=== PATIENT | male | born 1950 | race African-American/Black ===

== ENCOUNTER 2023-03-28 20:27 | Emergency (ER) | payer MEDICARE, OTHER ==
[~2023-03-28] VITALS: Ht 177.8 cm; Wt 100.0 kg
[2023-03-28 20:29] VITALS: BP 132/80
[2023-03-28] MEDS ORDERED: ACETAMINOPHEN 325MG TABLET PO ONE (20:45)
[2023-03-28] MEDS ORDERED: BACLOFEN 10MG TABLET PO ONE (20:45)
[2023-03-28 21:01] LABS: BASOPHILS % 0.3 % (0.0-2.0); EOSINOPHILS % 3.1 % (0.0-5.0); HEMATOCRIT. 43.4 % (42.0-52.0); HEMOGLOBIN. 14.5 g/dL (14.0-18.0); LYMPHOCYTES % 31.5 % (20.0-50.0); MEAN PLATELET VOLUME 8.5 fl (7.4-10.4); MONOCYTES % 7.6 % (2.0-8.0); NEUTROPHILS % 57.5 % (40.0-76.0); PLATELET 188 x1000/uL (130-400); RED BLOOD CELL COUNT 4.83 mill/uL (4.7-6.1); RED CELL DISTRIBUTION WIDTH 13.7 % (11.6-14.6)
[2023-03-28 21:09] LABS: CHLORIDE 103 mEq/L (98-107)
[2023-03-28 21:19] LABS: ETHANOL BLOOD < 10 mg/dL; PHOSPHORUS 2.9 mg/dL (2.5-4.9)
[2023-03-28] MEDS ORDERED: BACL-141 MT (22:09)
[2023-03-28] MEDS ORDERED: ACET-2708 MT (22:09)
[2023-03-28] MEDS ORDERED: ACETAMINOPHEN 325MG TABLET PO NR (22:30)
[2023-03-28] MEDS ORDERED: BACLOFEN 10MG TABLET PO NR (22:30)
== END 2023-03-28 22:33 | disposition home or self-care (01) ==
LOC: ER 20:27
DX: R25.2 Cramp and spasm (principal); E86.0 Dehydration; N28.9 Disorder of kidney and ureter, unspecified
CPT/HCPCS: 36415; 80053; 80320; 83735; 84100; 85025; 99283; G0480